=== PATIENT | male | born 1940 | race Two or more races ===

== ENCOUNTER 2022-06-26 10:49 | Inpatient (IN) | payer OTHER ==
[~2022-06-26] VITALS: Ht 172.7 cm; Wt 63.6 kg
[2022-06-26] VITALS (19 sets, daily range): BP systolic 91–131; BP diastolic 41–64
[2022-06-26] MEDS ORDERED: VANCOMYCIN 1GM/250ML 250 ML IV ONE ×2 (11:15→16:00)
[2022-06-26] MEDS ORDERED: CEFEPIME 1GM/ 50ML 50 ML IV ONE (11:15)
[2022-06-26] MEDS ORDERED: LACTATED RINGER'S 2,000 ML IV ONE (11:15)
[2022-06-26] MEDS ORDERED: IOHEXOL 300 MG/ML 100ML BOTTLE IJ ONE (11:35)
[2022-06-26 11:48] LABS: Hematocrit 42.6 % (41.0-53.0); Hemoglobin 13.8 g/dL (13.5-17.5); Mean Corpuscular Hemoglobin 27.8 pg (28.0-32.0); Mean Corpuscular Hgb Conc. 32.4 g/dL (32.0-36.0); Mean Corpuscular Volume 85.7 fL (80.0-100.0); Red Blood Cells 4.97 10^6/uL (4.5-5.90); Red Cell Distribution Width 15.6 % (11.8-14.3); White Blood Cell 17.1 10^3/uL (4.4-10.8)
[2022-06-26 12:11] LABS: Lactic Acid w/Reflex 10.2 mmol/L (0.4-2.0)
[2022-06-26 12:12] LABS: Calcium 8.9 mg/dL (8.5-10.1); Chloride 109 mmol/L (98-107); Potassium 4.4 mmol/L (3.5-5.1); Sodium 140 mmol/L (136-145)
[2022-06-26 12:18] LABS: Alanine Aminotransferase 16 U/L (16-61); Albumin 3.2 g/dL (3.4-5.0); Alkaline Phosphatase 78 U/L (45-117); Anion Gap 15 (5-15); Aspartate Aminotransferase 33 U/L (15-37); BUN/Creatinine Ratio 19.4 (10.0-20.0); Bilirubin, Total 1.9 mg/dL (0.2-1.0); Blood Alcohol < 3.0 mg/dL (0-5); Blood Urea Nitrogen 35 mg/dL (7-18); Carbon Dioxide 16 mmol/L (21-32); GFR African American 47 mL/min; GFR Non-African American 39 mL/min; Glucose 148 mg/dL (74-106); Total Protein 6.8 g/dL (6.4-8.2)
[2022-06-26 12:21] LABS: Basophils % (manual) 0 (0.0-2.0); Blast Cells 0; Eosinophils % (manual) 0 (0-7); Metamyelocytes % 0; Myelocytes % 0; Promyelocytes % 0; Reactive Lymphocytes 0
[2022-06-26 12:39] LABS: Alcohol, Urine < 3.0 mg/dL (0-10); Amphetamine Screen, Urine NEGATIVE (NEGATIVE); Barbiturate Scree,Urine NEGATIVE (NEGATIVE); Benzodiazephine Screen, Urine NEGATIVE (NEGATIVE); Cannabinoid Screen, Urine NEGATIVE (NEGATIVE); Cocaine Screen, Urine NEGATIVE (NEGATIVE); Opiate Scree,Urine NEGATIVE (NEGATIVE); Phencyclidine Screen, Urine NEGATIVE (NEGATIVE)
[2022-06-26] MEDS ORDERED: ASPirin 300 MG RECTAL SUPP PR ONE ×2 (12:45→13:00)
[2022-06-26 12:49] LABS: Urine Bacteria NONE SEEN /hpf (None Seen); Urine Blood TRACE /uL (Negative); Urine Specific Gravity 1.028 (1.001-1.035); Urine WBC 2 /hpf (0 - 3)
[2022-06-26 13:16] LABS: Band Neutrophils % (manual) 26; Lymphocytes % (manual) 12 (10.0-50.0); Monocytes % (manual) 5 (0-12)
[2022-06-26] MEDS ORDERED: NOREPINEPHRINE 8 MG/250ML KIT 250 ML IV ONE (13:51)
[2022-06-26] MEDS: NOREPINEPHRINE 8 MG/250ML KIT 250 ML IV SCH (13:58)
[2022-06-26] MEDS ORDERED: MORPHINE SULFATE INJ 2 MG/ml SYRG IV PRN (14:45)
[2022-06-26] MEDS ORDERED: metroNIDAZOLE 500MG/100ML 100 ML IV ONE (14:45)
[2022-06-26] MEDS ORDERED: VANCOMYCIN PER PHARMACY 0 MG IV SCH (14:45)
[2022-06-26] MEDS ORDERED: NITROGLYCERIN 0.4 MG SL TAB SL PRN (14:45)
[2022-06-26] MEDS ORDERED: PANTOPRAZOLE 40 MG/10 ML VIAL INJ IV ONE (15:00)
[2022-06-26] MEDS: SODIUM CHLORIDE 0.9% 1,000 ML IV SCH ×2 (15:22→22:55)
[2022-06-26 16:05] LABS: Cholesterol 88 mg/dL (< 200)
[2022-06-26 16:07] LABS: HDL Cholesterol 34 mg/dL (40-59); LDL Cholesterol 50 mg/dL (< 100); Triglycerides 35 mg/dL (< 150)
[2022-06-26] MEDS ORDERED: IOHEXOL 350 MG/ML 100ML IJ ONE (20:16)
[2022-06-26] MEDS: CEFEPIME 1GM/ 50ML 50 ML IV SCH (21:52)
[2022-06-26] MEDS: metroNIDAZOLE 500MG/100ML 100 ML IV SCH (21:52)
[2022-06-26] MEDS: PANTOPRAZOLE 40 MG/10 ML VIAL INJ IV SCH (21:53)
[2022-06-26] MEDS: ENOXAPARIN SOD 80 MG/0.8ML SYRINGE SC SCH (21:53)
[2022-06-26] MEDS: ATORVASTATIN 20 MG TAB PO SCH (21:53)
[2022-06-26] MEDS ORDERED: CARB-80 PO ×2 (22:30)
[2022-06-27] VITALS (72 sets, daily range): BP systolic 104–159; BP diastolic 49–79
[2022-06-27 04:00] LABS: Basophils # (auto) 0 10 ^3/uL (0-0.2); Basophils % (auto) 0.2 % (0.0-2.0); Eosinophils # (auto) 0 10 ^3/uL (0-0.8); Hematocrit 36.8 % (41.0-53.0); Hemoglobin 12.3 g/dL (13.5-17.5); Lymphocytes # (auto) 0.6 10 ^3/uL (0.4-5.4); Mean Corpuscular Hemoglobin 28.6 pg (28.0-32.0); Mean Corpuscular Hgb Conc. 33.5 g/dL (32.0-36.0); Mean Corpuscular Volume 85.5 fL (80.0-100.0); Monocytes # (auto) 1.1 10 ^3/uL (0-1.3); Monocytes % (auto) 8.8 % (0.0-12.0); Neutrophils # (auto) 11.1 10 ^3/uL (1.6-8.6); Nucleated Red Blood Cells % 0.1 %; Red Blood Cells 4.31 10^6/uL (4.5-5.90); Red Cell Distribution Width 15.8 % (11.8-14.3); White Blood Cell 12.9 10^3/uL (4.4-10.8)
[2022-06-27 04:28] LABS: Albumin 2.2 g/dL (3.4-5.0); BUN/Creatinine Ratio 35.7 (10.0-20.0); Calcium 8.1 mg/dL (8.5-10.1); Potassium 4.9 mmol/L (3.5-5.1)
[2022-06-27 04:31] LABS: Bilirubin, Total 0.9 mg/dL (0.2-1.0); Total Protein 5.8 g/dL (6.4-8.2)
[2022-06-27] MEDS ORDERED: VANCOMYCIN 750mg/250ml 250 ML IV SCH (05:00)
[2022-06-27] MEDS: metroNIDAZOLE 500MG/100ML 100 ML IV SCH ×3 (05:37→18:57)
[2022-06-27] MEDS: SODIUM CHLORIDE 0.9% 1,000 ML IV SCH ×3 (06:23→23:03)
[2022-06-27] MEDS: ASPirin 81 mg TAB PO SCH (09:34)
[2022-06-27] MEDS: PANTOPRAZOLE 40 MG/10 ML VIAL INJ IV SCH ×2 (09:35→21:37)
[2022-06-27] MEDS: ENOXAPARIN SOD 80 MG/0.8ML SYRINGE SC SCH ×2 (09:35→21:38)
[2022-06-27] MEDS ORDERED: ENOXAPARIN SOD 40 MG/0.4 ML SYRINGE SC SCH (10:00)
[2022-06-27] MEDS: NOREPINEPHRINE 8 MG/250ML KIT 250 ML IV SCH (14:00)
[2022-06-27] MEDS: CEFEPIME 1GM/ 50ML 50 ML IV SCH ×2 (18:57→21:37)
[2022-06-27] MEDS: ATORVASTATIN 20 MG TAB PO SCH (21:37)
[2022-06-28] VITALS (55 sets, daily range): BP systolic 111–155; BP diastolic 55–76
[2022-06-28 03:53] LABS: Basophils # (auto) 0 10 ^3/uL (0-0.2); Basophils % (auto) 0.3 % (0.0-2.0); Eosinophils # (auto) 0 10 ^3/uL (0-0.8); Hematocrit 35.3 % (41.0-53.0); Hemoglobin 11.7 g/dL (13.5-17.5); Lymphocytes # (auto) 0.8 10 ^3/uL (0.4-5.4); Lymphocytes % (auto) 7.6 % (10.0-50.0); Mean Corpuscular Hemoglobin 28.4 pg (28.0-32.0); Mean Corpuscular Volume 85.9 fL (80.0-100.0); Monocytes # (auto) 0.7 10 ^3/uL (0-1.3); Monocytes % (auto) 6.4 % (0.0-12.0); Neutrophils # (auto) 9.4 10 ^3/uL (1.6-8.6); Neutrophils % (auto) 85.7 % (37.0-80.0); Red Blood Cells 4.11 10^6/uL (4.5-5.90); Red Cell Distribution Width 15.5 % (11.8-14.3)
[2022-06-28 04:12] LABS: Albumin 2.2 g/dL (3.4-5.0); BUN/Creatinine Ratio 37.1 (10.0-20.0); Calcium 8.3 mg/dL (8.5-10.1); Potassium 3.8 mmol/L (3.5-5.1)
[2022-06-28 04:13] LABS: Bilirubin, Total 0.5 mg/dL (0.2-1.0); Total Protein 5.9 g/dL (6.4-8.2)
[2022-06-28] MEDS: VANCOMYCIN 1GM/250ML 250 ML IV SCH (04:45)
[2022-06-28] MEDS: metroNIDAZOLE 500MG/100ML 100 ML IV SCH ×3 (05:54→23:01)
[2022-06-28] MEDS: SODIUM CHLORIDE 0.9% 1,000 ML IV SCH ×2 (06:45→09:05)
[2022-06-28] MEDS: PANTOPRAZOLE 40 MG/10 ML VIAL INJ IV SCH ×2 (08:51→23:01)
[2022-06-28] MEDS: CEFEPIME 1GM/ 50ML 50 ML IV SCH ×2 (08:51→23:01)
[2022-06-28] MEDS: ENOXAPARIN SOD 80 MG/0.8ML SYRINGE SC SCH ×2 (08:51→23:02)
[2022-06-28] MEDS: ASPirin 81 mg TAB PO SCH (08:52)
[2022-06-28] MEDS: NOREPINEPHRINE 8 MG/250ML KIT 250 ML IV SCH (13:48)
[2022-06-28] MEDS: ATORVASTATIN 20 MG TAB PO SCH (22:00)
[2022-06-29] VITALS (34 sets, daily range): BP systolic 114–162; BP diastolic 53–84
[2022-06-29] MEDS: SODIUM CHLORIDE 0.9% 1,000 ML IV SCH ×4 (02:30→23:03)
[2022-06-29] MEDS: metroNIDAZOLE 500MG/100ML 100 ML IV SCH ×3 (06:00→21:40)
[2022-06-29] MEDS: VANCOMYCIN 1GM/250ML 250 ML IV SCH (06:31)
[2022-06-29] MEDS: ENOXAPARIN SOD 80 MG/0.8ML SYRINGE SC SCH ×2 (08:48→21:56)
[2022-06-29] MEDS: PANTOPRAZOLE 40 MG/10 ML VIAL INJ IV SCH ×2 (08:48→21:55)
[2022-06-29] MEDS: ASPirin 81 mg TAB PO SCH (08:49)
[2022-06-29] MEDS: CEFEPIME 1GM/ 50ML 50 ML IV SCH ×2 (08:49→21:55)
[2022-06-29] MEDS: NOREPINEPHRINE 8 MG/250ML KIT 250 ML IV SCH (13:15)
[2022-06-29] MEDS: ATORVASTATIN 20 MG TAB PO SCH (21:45)
[2022-06-30] MEDS: VANCOMYCIN 1GM/250ML 250 ML IV SCH (05:15)
[2022-06-30] MEDS: metroNIDAZOLE 500MG/100ML 100 ML IV SCH ×3 (06:30→21:34)
[2022-06-30] MEDS: SODIUM CHLORIDE 0.9% 1,000 ML IV SCH ×3 (06:45→21:45)
[2022-06-30 09:00] VITALS: BP 142/52
[2022-06-30] MEDS: ASPirin 81 mg TAB PO SCH (09:07)
[2022-06-30] MEDS: PANTOPRAZOLE 40 MG/10 ML VIAL INJ IV SCH (09:07)
[2022-06-30] MEDS: CEFEPIME 1GM/ 50ML 50 ML IV SCH ×2 (09:07→22:37)
[2022-06-30] MEDS: ENOXAPARIN SOD 80 MG/0.8ML SYRINGE SC SCH ×2 (09:08→21:45)
[2022-06-30 13:00] VITALS: BP 149/59
[2022-06-30 17:00] VITALS: BP 112/55
[2022-06-30] MEDS: VANCOMYCIN HCL 500MG/5ML ORAL SOL PO SCH ×2 (18:00→21:35)
[2022-06-30] MEDS: Pro-Stat SF 30ml Vanilla PO SCH (18:38)
[2022-06-30] MEDS: ACETAMINOPHEN 325 MG TAB PO PRN (20:20)
[2022-06-30] MEDS: ATORVASTATIN 20 MG TAB PO SCH (21:45)
[2022-06-30 22:00] VITALS: BP 109/46
[2022-06-30 22:48] LABS: Magnesium 1.5 mg/dL (1.6-2.6)
[2022-06-30 22:51] LABS: Potassium 2.2 mmol/L (3.5-5.1)
[2022-07-01] MEDS ORDERED: POTASSIUM CHL 20 Meq TABLET PO ONE (00:30)
[2022-07-01 04:50] VITALS: BP 110/56
[2022-07-01] MEDS ORDERED: POTASSIUM EFFERVESENT TAB 25 MEQ PO ONE ×2 (05:00→12:00)
[2022-07-01] MEDS: metroNIDAZOLE 500MG/100ML 100 ML IV SCH ×2 (05:43→14:12)
[2022-07-01] MEDS: VANCOMYCIN HCL 500MG/5ML ORAL SOL PO SCH ×3 (06:33→17:47)
[2022-07-01] MEDS: SODIUM CHLORIDE 0.9% 1,000 ML IV SCH ×2 (06:45→14:45)
[2022-07-01] MEDS: Pro-Stat SF 30ml Vanilla PO SCH ×2 (08:00→18:45)
[2022-07-01 08:41] VITALS: BP 129/86
[2022-07-01] MEDS: CEFEPIME 1GM/ 50ML 50 ML IV SCH (09:03)
[2022-07-01] MEDS: ASPirin 81 mg TAB PO SCH (09:52)
[2022-07-01] MEDS: ENOXAPARIN SOD 80 MG/0.8ML SYRINGE SC SCH (09:52)
[2022-07-01] MEDS: ACETAMINOPHEN 325 MG TAB PO PRN (12:43)
[2022-07-01 13:28] VITALS: BP 100/50
[2022-07-01 16:40] VITALS: BP 118/56
[2022-07-01] MEDS ORDERED: FLORASTOR (S. BOULARDII) 250 MG CAP PO SCH (21:10)
== END 2022-07-01 21:45 | disposition short-term general hospital (02) | DRG 871 ==
LOC: EDBD 10:49 → ER 10:49 → OVERFLOW 14:48 → ICU WEST 18:20 → TELE-EAST 06-29 23:40
PROVIDERS: ADMIT Registered Nurse; ATTEND Internal Medicine
DX: A41.9 Sepsis, unspecified organism (principal); G93.41 Metabolic encephalopathy; R65.21 Severe sepsis with septic shock; I21.A1 Myocardial infarction type 2; K56.2 Volvulus; N17.0 Acute kidney failure with tubular necrosis; N30.00 Acute cystitis without hematuria; A04.72 Enterocolitis due to Clostridium difficile, not specified as recurrent; E87.20 Acidosis, unspecified; K56.7 Ileus, unspecified; G20 Parkinson's disease; Z20.822 Contact with and (suspected) exposure to COVID-19; I10 Essential (primary) hypertension; B96.5 Pseudomonas (aeruginosa) (mallei) (pseudomallei) as the cause of diseases classified elsewhere; E11.9 Type 2 diabetes mellitus without complications; Z88.7 Allergy status to serum and vaccine
CPT/HCPCS: 36415; 51702; 70450; 71045; 71260; 74176; 74177; 80053; 80061; 80202; 80307; 80320; 80329; 81001; 82140; 83036; 83605; 83735; 83880; 84132; 84443; 84484; 85007; 85025; 85027; 87040; 87081; 87086; 87088; 87186; 87426; 87493; 87804; 93005; 93306; 96365; 96366; 96368; 97110; 97116; 97163; 97530; 99291; C9113; G0378; J3490